=== PATIENT | male | born 1965 | race Caucasian/White ===

== ENCOUNTER 2018-04-25 06:59 | Day surgery (SDC) | END 2018-04-25 16:16 | disposition home or self-care (01) ==

== ENCOUNTER 2019-01-19 10:08 | Inpatient (IN) | payer BC ==
[~2019-01-19] VITALS: Ht 185.4 cm; Wt 145.0 kg
[~2019-01-19 10:08] MED LIST: ASPI-903 PO; GABA300C16 PO; GLIM4TAB PO; HYDR-3027 PO; INSU100I33 SC; IRBE300T15 PO; METF100010 PO; PANT40TA4 PO; PROP80CA3 PO; SIMV5TAB14 PO
[2019-01-19] MEDS ORDERED: ONDANSETRON 4 MG INJ IV PRN (11:30)
[2019-01-19] MEDS ORDERED: ACETAMINOPHEN 325 MG TAB PO PRN (11:30)
[2019-01-19 12:13] VITALS: BP 158/86; PULSE 97; RESP 18
[2019-01-19] MEDS ORDERED: SOD CHLORIDE 0.45% 1,000 ML IV SCH (12:31)
[2019-01-19 12:47] VITALS: Ht 185.4 cm; Wt 145.0 kg
[2019-01-19] MEDS ORDERED: GLUCOSE GEL 15 GRAM TUBE PO PRN ×2 (13:00)
[2019-01-19] MEDS ORDERED: GLUCOSE GEL 15 GRAM TUBE BUCCAL PRN (13:00)
[2019-01-19] MEDS ORDERED: GABAPENTIN 300 MG CAP PO SCH (13:00)
[2019-01-19] MEDS ORDERED: NACL 0.9% 3 ML SYG IV SCH (13:00)
[2019-01-19] MEDS ORDERED: GLUCAGON 1 MG INJ IM PRN (13:00)
[2019-01-19] MEDS ORDERED: DEXTROSE 50% 50 ML SYRINGE IV PRN ×2 (13:00)
[2019-01-19] MEDS ORDERED: morphine 2 MG INJ IV PRN (13:00)
[2019-01-19] MEDS ORDERED: OXYCODONE/ACETAMINOPHEN (5/325) TAB PO PRN (13:00)
--- NOTE | 2019-01-19 13:42 | ERD ---
ER Documentation Chief Complaint Chief Complaint TRANSFERED FROM [facility] FOR AP/CHOLELITHIASIS HPI Patient is a 53-year-old male with hypertension and diabetes who presents for abdominal pain. The patient was transferred from [facility] as he is capitated to [facility]. He was found to have stones in the gallbladder. He had epigastric abdominal pain which started yesterday. Sharp in nature and comes and goes. He has had no treatment as of yet. He does not remember the name of his primary doctor. ROS All systems reviewed and are negative except as per history of present illness. Medications Home Meds Reported Medications Gabapentin* (Gabapentin*) 300 Mg Capsule, 600 MG PO TID, #180 CAP 04/25/18 Metformin Hcl* (Metformin Hcl*) 1,000 Mg Tablet, 1000 MG PO WITH BREAKFAST DINNE, #60 TAB 04/25/18 Glimepiride* (Glimepiride*) 4 Mg Tablet, 4 MG PO WITH BREAKFAST DINNE, TAB 04/25/18 Hydrocodone Bit/Acetaminophen (Vicodin HP 10-300) 1 Each Tablet, 1 TAB PO Q4H PRN for PAIN, TAB 04/25/18 Aspirin* (Aspirin* Chew) 81 Mg Tab.chew, 81 MG PO DAILY, TAB.CHEW 04/25/18 Simvastatin* (Simvastatin*) 5 Mg Tablet, 20 MG PO QHS, #30 TAB 04/25/18 Pantoprazole* (Pantoprazole*) 40 Mg Tablet.dr, 40 MG PO DAILY, TAB 04/25/18 Irbesartan* (Irbesartan*) 300 Mg Tablet, 300 MG PO DAILY, TAB 04/25/18 Propranolol Hcl* (Propranolol Hcl*) 80 Mg Cap.sa.24h, 80 MG PO DAILY, TAB 04/25/18 Insulin Glargine,Hum.rec.anlog (Basaglar Kwikpen U-100) 100 Unit/1 Ml Insuln.pen, 50 UNIT SC, EA 04/25/18 Allergies Allergies: Coded Allergies: Iodine and Iodide Containing Produc (Verified Allergy, Intermediate, rash, swelling, 01/19/19) PMhx/Soc History of Surgery: Yes (Back Surgery 2018) Anesthesia Reaction: No Hx Neurological Disorder: No Hx Respiratory Disorders: No Hx Cardiac Disorders: No Hx Psychiatric Problems: No Hx Miscellaneous Medical Probl: No Hx Alcohol Use: No Hx Substance Use: No Hx Tobacco Use: No Smoking Status: Current every day smoker FmHx Family History: diabetes Physical Exam Vitals Vital Signs Date Temp Pulse Resp B/P (MAP) Pulse Ox O2 O2 Flow FiO2 Time Delivery Rate 01/19/19 98.0 90 17 141/64 98 10:27 (89) Physical Exam Const: No acute distress Head: Atraumatic Eyes: Normal Conjunctiva ENT: Normal External Ears, Nose and Mouth. Neck: Full range of motion. No meningismus. Resp: Clear to auscultation bilaterally Cardio: Regular rate and rhythm, no murmurs Abd: Soft, right upper quadrant and epigastric tenderness to palpation without rebound or guarding Skin: No petechiae or rashes Back: No midline or flank tenderness Ext: No cyanosis, or edema Neur: Awake and alert Psych: Normal Mood and Affect Procedures/MDM Patient is a 53-year-old male who presents for gallstones and biliary colic. I reviewed labs and ultrasound from [facility]. The patient was transferred to the emergency department because there were no beds available for direct admission. I spoke with the panel team for admission to a medical surgical bed. I spoke with Dr. Mai from surgery who is willing to consult on the patient. Departure Diagnosis: Primary Impression: Abdominal pain Abdominal location: epigastric Qualified Codes: R10.13 - Epigastric pain Additional Impression: Biliary colic Condition: AMADO Bajwa MD Jan 19, 2019 13:41
--- NOTE | 2019-01-19 14:45 | HP ---
Date/Time of Note Date/Time of Note DATE: 01/19/19 TIME: 14:41 Assessment/Plan VTE Prophylaxis Pharmacological prophylaxis: heparin Lines/Catheters IV Catheter Type (from Nrsg): Saline Lock Assessment/Plan Hospital Course 53 yo male with obesity, DMII presenting with biliary colic - Pain control - IVF - No signs of infection at this time will hold off on abx - Dr Mai to consult. Eventual cholecystectomy DMII - Basal bolus insulin Hypertension: - Hold home meds for now HPI/ROS Admit Date/Time Admit Date/Time Jan 19, 2019 at 11:23 Hx of Present Illness 53 yo male with h/o gallstones, DMII, back pain presents with RUQ pain Patinet in usoh until two days ago. Has had fairly constant RUQ pain which radiates around to his back. Nausea. Worse with food. No fevers or chills. Went to [place] ED. Found to have gallstones. No findings of cholecystitis or cholangitis. Afebrile, normal LFTs. Sent here for management ROS Constitutional: no complaints, improved Eyes: no complaints ENT: no complaints Respiratory: no complaints Cardiovascular: no complaints Gastrointestinal: no complaints Genitourinary: no complaints Musculoskeletal: no complaints Skin: no complaints Neurologic: no complaints Endocrine: no complaints Lymphatic: no complaints Psychological: no complaints, nl mood/affect Immunologic: no complaints PMH/Family/Social Past Medical History Medical History: no pertinent history Medications Current Medications Sodium Chloride 1,000 ml @ 125 mls/hr Q8H IV Last administered on 01/19/19at 13:35; Admin Dose 125 MLS/HR; Start 01/19/19 at 12:31 IV Flush (NS 3 ml) 3 ml PER PROTOCOL IV ; Start 01/19/19 at 13:00 Oxycodone/ Acetaminophen (Percocet (5/ 325)) 1 tab Q6H PRN PO .MOD PAIN 4-6; Start 01/19/19 at 13:00 Morphine Sulfate (morphine) 2 mg Q4H PRN IV .SEVERE PAIN 7-10; Start 01/19/19 at 13:00 Insulin Glargine (Lantus) 22 units DAILY@2000 SC ; Start 01/19/19 at 20:00 Insulin Aspart (Novolog Insulin Pen) NOVOLOG *MODERATE* ALGORITHM WITH MEALS BEDTIME SC ; Start 01/19/19 at 18:00 Gabapentin (Neurontin) 600 mg TID PO Last administered on 01/19/19at 13:34; Admin Dose 600 MG; Start 01/19/19 at 13:00 Pantoprazole (Protonix Tab) 40 mg DAILY@0600 PO ; Start 01/20/19 at 06:00 Miscellaneous Information 1 ea NOTE XX ; Start 01/19/19 at 13:00 Glucose (Glutose) 15 gm Q15M PRN PO DECREASED GLUCOSE; Start 01/19/19 at 13:00 Glucose (Glutose) 22.5 gm Q15M PRN PO DECREASED GLUCOSE; Start 01/19/19 at 13:00 Dextrose (D50w Syringe) 25 ml Q15M PRN IV DECREASED GLUCOSE; Start 01/19/19 at 13:00 Dextrose (D50w Syringe) 50 ml Q15M PRN IV DECREASED GLUCOSE; Start 01/19/19 at 13:00 Glucagon (Glucagen) 1 mg Q15M PRN IM DECREASED GLUCOSE; Start 01/19/19 at 13:00 Glucose (Glutose) 15 gm Q15M PRN BUCCAL DECREASED GLUCOSE; Start 01/19/19 at 13:00 Coded Allergies: Iodine and Iodide Containing Produc (Verified Allergy, Intermediate, rash, swelling, 01/19/19) Past Surgical History Past Surgical Hx: no surgical history Family History Significant Family History: no pertinent family hx Social History Alcohol Use: none Smoking Status: Current every day smoker Drug Use: none Exam/Review of Systems Vital Signs Vitals Vital Signs Date Temp Pulse Resp B/P (MAP) Pulse Ox O2 O2 Flow FiO2 Time Delivery Rate 01/19/19 97.7 97 18 158/86 96 Room Air 12:13 (110) Exam Constitutional: alert, oriented, well developed Psych: no complaints, nl mood/affect Head: normocephalic, atraumatic Eyes: nl conjunctiva, EOMI, nl lids, nl sclera, PERRL ENMT: nl external ears & nose, nl lips & teeth, nl nasal mucosa & septum Neck: supple, non-tender Respiratory: clear to auscultation, normal air movement Cardiovascular: regular rate and rhythm, nl pulses Gastrointestinal: soft, nl liver, spleen, non-tender Musculoskeletal: nl extremities to inspection Extremities: normal pulses 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
[2019-01-19] MEDS ORDERED: INSULIN ASPART [NOVOLOG] 3 ML PEN SC SCH (18:00)
[2019-01-19] MEDS ORDERED: INSULIN GLARGINE [LANTus] (100 UNITS/ML) SYG SC SCH (20:00)
--- NOTE | 2019-01-19 20:08 | PDOCDIS ---
Discharge Instructions DIAGNOSIS Discharge Diagnosis Cholelithiasis CONDITION [id number] Patient Condition: [id number] Stable FOLLOW UP/APPOINTMENTS Follow-up Plan Make an appointment with your doctor to discuss your diabetes You have gallstones in your gall bladder which may cause abdominal pain. Avoid eating fatty foods. If you have frequent pain you should discuss with your doctor whether to have your gall bladder removed GOYO HOLDER MD Jan 19, 2019 20:08
[2019-01-20] MEDS ORDERED: PANTOPRAZOLE (EC) 40 MG TAB PO SCH (06:00)
--- NOTE | 2019-01-20 17:13 | DS ---
Date/Time of Note Date/Time of Note DATE: 01/20/19 TIME: 17:12 Discharge Summary Admission/Discharge Info Admit Date/Time Jan 19, 2019 at 11:23 Discharge Date/Time Jan 19, 2019 at 20:10 Discharge Diagnosis Cholelithiasis Patient Condition: Stable Hx of Present Illness 53 yo male with h/o gallstones, DMII, back pain presents with RUQ pain Patinet in usoh until two days ago. Has had fairly constant RUQ pain which radiates around to his back. Nausea. Worse with food. No fevers or chills. Went to [place] ED. Found to have gallstones. No findings of cholecystitis or cholangitis. Afebrile, normal LFTs. Sent here for management Hospital Course 53 yo male with obesity, DMII presenting with biliary colic I discussed case with Dr Mai who recommended outpatient follow up as there is no acute need for surgery. Patient was upset but understood. Advised to avoid fatty foods and follow up with PMD. Also advised on out of control DM Home Meds Reported Medications Gabapentin* (Gabapentin*) 300 Mg Capsule, 600 MG PO TID, #180 CAP 04/25/18 Metformin Hcl* (Metformin Hcl*) 1,000 Mg Tablet, 1000 MG PO WITH BREAKFAST DINNE, #60 TAB 04/25/18 Glimepiride* (Glimepiride*) 4 Mg Tablet, 4 MG PO WITH BREAKFAST DINNE, TAB 04/25/18 Hydrocodone Bit/Acetaminophen (Vicodin HP 10-300) 1 Each Tablet, 1 TAB PO Q4H PRN for PAIN, TAB 04/25/18 Aspirin* (Aspirin* Chew) 81 Mg Tab.chew, 81 MG PO DAILY, TAB.CHEW 04/25/18 Simvastatin* (Simvastatin*) 5 Mg Tablet, 20 MG PO QHS, #30 TAB 04/25/18 Pantoprazole* (Pantoprazole*) 40 Mg Tablet.dr, 40 MG PO DAILY, TAB 04/25/18 Irbesartan* (Irbesartan*) 300 Mg Tablet, 300 MG PO DAILY, TAB 04/25/18 Propranolol Hcl* (Propranolol Hcl*) 80 Mg Cap.sa.24h, 80 MG PO DAILY, TAB 04/25/18 Insulin Glargine,Hum.rec.anlog (Basaglar Kwikpen U-100) 100 Unit/1 Ml In suln.pen, 50 UNIT SC, EA 04/25/18 Follow-up Plan Make an appointment with your doctor to discuss your diabetes You have gallstones in your gall bladder which may cause abdominal pain. Avoid eating fatty foods. If you have frequent pain you should discuss with your doctor whether to have your gall bladder removed Primary Care Provider Not On Staff Doctor Pending Labs Laboratory Tests Test 01/19/19 17:21 Bedside Glucose 169 mg/dL (70-220) GOYO HOLDER MD Jan 20, 2019 17:13
== END 2019-01-19 20:10 | disposition left against medical advice (07) | DRG 445 ==
LOC: E/R 10:08 → 5EC 11:23
PROVIDERS: ADMIT Internal Medicine; ATTEND Internal Medicine
DX: K80.20 Calculus of gallbladder without cholecystitis without obstruction (principal); Z68.41 Body mass index [BMI] 40.0-44.9, adult; E66.9 Obesity, unspecified; E11.9 Type 2 diabetes mellitus without complications
CPT/HCPCS: 80053; 82962; 83036; 85025; J1815; J2270